=== PATIENT | male | born 1970 | race Caucasian/White ===

== ENCOUNTER 2016-09-07 06:39 | Inpatient (IN) ==
[2016-09-07] MEDS ORDERED: ONDANSETRON 4 MG/2 ML VIAL IV STA ×2 (06:55→12:21)
[2016-09-07] MEDS ORDERED: SODIUM CHLORIDE 0.9% 1,000 ML IV STA ×2 (06:55→09:29)
[2016-09-07] MEDS ORDERED: ONDANSETRON 4 MG/2 ML VIAL ONE ×2 (07:02→12:22)
--- NOTE | 2016-09-07 07:02 | Emergency Department Note ---
Delaney Jones Hilary, am scribing for, and in the presence of, Jeremy Trevino MD 06: 57. Belinda Jones James D, MD, personally performed the services described in this documentation, ascribed by Esthela Baltazar in my presence, and it is both accurate and complete 701 . Arrival - Arrival Chief Complaint: Nausea/Vomiting/Diarrhea Stated Complaint: friend said he was falling out ED Nursing Triage Note: C/C N/VD, dizziness, near syncope started Wednesday Mode of Arrival: Wheelchair Limitations: No Limitations Source: Patient, RN Notes Reviewed Time Seen by Provider: 09/07/16 06:45 - History of Present Illness HPI Narrative: Pt is a 46 y/o male presenting to the ED with c/o nausea and vomiting which onset 3 days ago. He states that he thought this was a stomach virus but feels like its been going on too long and he can't keep anything down. Pt confirms nausea, vomiting, diarrhea, syncope, and decreased appetite but denies melena, blood in stool or vomit. No other complaints or problems stated in the ED. Onset (ago): day(s) Consistency: constant Severity: mild Severity scale (1-10): 2 Allergies/Adverse Reactions: Allergies Allergy/AdvReac Type Severity Reaction Status Date / Time No Known Allergies Allergy Unverified 09/07/16 06:43 Home Medications: Home Medications Medication Instructions Recorded Confirmed Type No Known Home Medications [No 09/07/16 09/07/16 History Known Home Medications] Review of System - Review of System 12 point system: reviewed and no additional remarkable complaints except as stated - Review of System Constitutional: Absent: fever Gastrointestinal: Present: abdominal pain, nausea, vomiting, diarrhea, hematochezia. Absent: hematemesis, melena Medical,Surgical,& Family Hx - Medical History Genitourinary: History of: Kidney Stones - Social History Smoking Status: Never smoker Frequency of Alcohol Use: None Type of Drug Use: None Exam Physical Examination: GENERAL: This is a well-nourished, well-developed in no apparent distress. VITAL SIGNS: Temperature: 97.4 Pulse: 90 Respiratory: 16 Blood Pressure: 164/ 108 O2Sat: 99 HEENT: Head is normocephalic and atraumatic. Pupils are equally round and reactive to light. Extraocular movement are intact. Oropharynx is benign with dry mucous membranes. NECK: Neck is soft and supple without tenderness. There are no masses. There is no lymphadenopathy. LUNGS: Lungs are clear to auscultation bilaterally. Chest rises symmetrically. There is no chest wall tenderness. CV: Heart is regular rate and rhythm without murmurs, rubs, or gallops. ABDOMEN: Abdomen is soft, tender to palpation in the epigastrium and right upper quadrant without rebound or guarding. There are no abnormal masses palpated. There is no organomegaly. Bowel sounds are present and active. SKIN: Skin is warm and dry. No rash. EXTREMITIES: Patient has full range of motion without tenderness. There is no pedal edema. NEUROLOGIC: Awake, alert, and oriented x4. Cranial nerves II through XII are grossly intact. There are no motorsensory deficits. PSYCHIATRIC: Normal affect. Normal mood. Vital Signs: Vital Signs Temperature 97.4 F L 09/07/16 06:41 Pulse Rate 75 09/07/16 09:30 Respiratory Rate 20 09/07/16 09:30 Blood Pressure 140/95 09/07/16 09:30 O2 Sat by Pulse Oximetry 98 09/07/16 09:30 Course - Consultations Consultation #1: Discussed with Dr. Loyola. Patient will be seen in the emergency department. Time: 12:23 Results - Labs CBC & BMP: 09/07/16 06:49 09/07/16 06:49 Lab Results: I have reviewed the patients labs Labs: Laboratory Tests 09/07/16 06:49 WBC 6.2 RBC 5.95 H Hgb 16.1 Hct 46.5 MCV 78.2 L [place] % (Auto) 13.0 H Laboratory Tests 09/07/16 06:49 Lipase 121.0 Laboratory Tests 09/07/16 06:49 Sodium 139 Potassium 4.7 Chloride 102 Carbon Dioxide 25 Anion Gap 16.7 H Glucose 109 H Total Bilirubin 1.20 H AST 49 H Albumin/Globulin Ratio 1.0 L HIDA scan: Decreased ejection fraction at 28%. This is consistent with gallbladder dysfunction. Laboratory Tests 09/07/16 12:30 Urine Color Yellow Urine Appearance Clear Urine Urobilinogen < 2.0 H - Diagnostic Findings Procedure: Abdominal x-ray: report reviewed by me, image reviewed by me ( Nonspecifc nonobstructive bowel gas pattern. Continued right nephrolithiasis. Visualized osseous and surrounding soft tissue structures appear grossly unchanged.), Chest x-ray: report reviewed by me, image reviewed by me (Stable chest x-ray without acute cardiopulmonary process demonstrated.), Ultrasound: report reviewed by me (Gallbladder ultrasound: No cholelithiasis, mild gallbladder wall thickening.) Disposition Clinical Impression: Dehydration, moderate, Nausea and vomiting, Right upper quadrant abdominal pain , Dysfunctional gallbladder Case discussed with: patient Condition: Stable
[2016-09-07 07:04] LABS: Basophils % 0.6 % (0.0-0.8); Eosinophils # 0.1 10*3/uL (0.0-0.87); Eosinophils % 1.1 % (0.00-10.9); Hematocrit 46.5 VOL% (42.0-52.0); Hemoglobin 16.1 GM/DL (14.0-18.0); Immature Granulocytes % 0.3 %; Immature Granulocytes Absolute 0.02 #; Lymphocytes # 1.5 10*3/uL (1.4-4.0); Lymphocytes % 24.3 % (21.2-54.2); Mean Corpuscular HGB Conc 34.6 GM/DL (32-36); Mean Corpuscular Hemoglobin 27 PG (27-34); Mean Corpuscular Volume 78.2 FL (87-102); Mean Platelet Volume 9.8 FL (9.6-12.0); Monocytes # 0.8 10*3/uL (0.11-0.8); Neutrophils # 3.7 10*3/uL (1.4-7.4); Neutrophils % 60.7 % (38.7-73.9); Platelet Count 141 T/CUMM (130-400); Red Blood Count 5.95 MC/CUMM (3.8-5.5); Red Cell Distribution Width 13.7 % (9.3-17.3); White Blood Count 6.2 T/CUMM (4-12)
[2016-09-07 07:33] LABS: Albumin 3.7 G/DL (3.4-5.0); Bilirubin,Total 1.2 MG/DL (0.2-1.0); Calcium 8.8 MG/DL (8.5-10.1); Osmolality,Calculated 276.5 MOS/KG (273-304); Potassium 4.7 MMOL/L (3.5-5.1); Total Protein 7.1 G/DL (6.4-8.3)
--- NOTE | 2016-09-07 07:47 | XRay Report ---
XR abdomen 2V Indication: Right upper quadrant and epigastric pain Comparison: None Technique: Frontal views of the abdomen in the supine and upright position. Findings: Nonspecific nonobstructive bowel gas pattern. Continued right nephrolithiasis. Visualized osseous and surrounding soft tissue structures appear grossly unchanged. IMPRESSION: As above. PROCEDURE INTERPRETED AT [facility] DEPARTMENT OF RADIOLOGY Final Report Signed by: Dr Jaime Holliday
--- NOTE | 2016-09-07 07:49 | XRay Report ---
XR chest 2V Indication: Right upper quadrant and epigastric pain Comparison: Chest x-ray dated December 08, 2012 Technique: Frontal and lateral views of the chest. Findings: The cardiomediastinal silhouette is stable in configuration. No focal consolidation, pleural effusion, or pneumothorax. Visualized osseous and surrounding soft tissue structures appear grossly unchanged. IMPRESSION: Stable chest x-ray without acute cardiopulmonary process demonstrated. PROCEDURE INTERPRETED AT [facility] DEPARTMENT OF RADIOLOGY Final Report Signed by: Dr Jaime Holliday
--- NOTE | 2016-09-07 09:26 | Ultrasound Report ---
History: Epigastric and right upper quadrant abdominal pain Date: 09/07/2016 Study: Gallbladder ultrasound Comparison exam: December 01, 2012 abdominal ultrasound Real-time ultrasound images are captured and archived. There is some nonspecific mild gallbladder wall thickening at 3.2 mm. There is no evidence of cholelithiasis or abnormal pericholecystic fluid. There is no sonographic Ko sign. The liver measures 16.7 cm length and is without focal mass lesion. The common bile duct measures 4.1 mm diameter. The pancreas is largely obscured by bowel gas. The right kidney measures 8.9 cm length and contains a 9 mm simple cyst in the mid to lower right kidney. The IVC is generally patent. Impression: Nonspecific mild gallbladder wall thickening. No evidence of cholelithiasis. Negative sonographic Ko sign. No significant findings otherwise PROCEDURE INTERPRETED AT [facility] DEPARTMENT OF RADIOLOGY Final Report Signed by: Dr. Erum Ramirez
--- NOTE | 2016-09-07 11:53 | Nuclear Medicine Report ---
History: Right upper quadrant abdominal pain Date: 09/07/2016 Study: Nuclear medicine hepatobiliary scan Comparison exam: December 02, 2012 exam Following the IV administration of 5 mCi technetium 99m Choletec, there is homogeneous uptake of the radiotracer by the liver. There is visualization of duodenal activity at 15 minutes and of gallbladder activity at 25 minutes. Following routine dynamic imaging, gallbladder ejection fraction was calculated. Counts were measured over the gallbladder for 60 minutes after the ingestion of 8 ounces of ensure. The patient reported mild nausea and cramping with ingestion of ensure. The gallbladder ejection fraction is mildly decreased at 28%. Impression: Mildly decreased gallbladder ejection fraction of 28%. Otherwise normal study PROCEDURE INTERPRETED AT [facility] DEPARTMENT OF RADIOLOGY Final Report Signed by: Dr. Erum Ramirez
[2016-09-07] MEDS ORDERED: HYDROmorphone 2 MG/1 ML VIAL IV STA (12:21)
[2016-09-07] MEDS ORDERED: HYDROmorphone 2 MG/1 ML VIAL ONE (12:24)
[2016-09-07 12:45] LABS: Apearance,Urine CLEAR (Clear); Bilirubin,Urine Negative (Negative); Blood, Urine Negative (Negative); Glucose,Urine (UA) Negative (Negative); Ketones,Urine Negative (Negative); Mucus,Urine Occasional /LPF (Occasional); Nitrite,Urine Negative (Negative); Protein,Urine Negative; RBC,Urine 2 /HPF (0-4); Squamous Epithelial Cell,Urine Occasional /HPF (0-10); Urine Color Yellow (Yellow); Urine Specific Gravity 1.015 (1.001-1.035); Urine Urobilinogen < 2.0 EU/DL (0.2-1.0); WBC,Urine 2 /HPF (0-6)
[2016-09-07 13:16] LABS: Troponin I Only < 0.015 NG/ML (0.00-0.045)
--- NOTE | 2016-09-07 13:19 | General Surg History&Physical ---
Assessment and Plan (1) Biliary dyskinesia Status: Acute Assessment and plan: Patient apparently has biliary dyskinesia but no evidence of acute cholecystitis present at this time. He can proceed with clear liquid diet, IV fluids, and we will repeat labs in the morning. Provided there is no cardiac involvement per evaluation below, we can proceed with laparoscopic cholecystectomy. We will also check fecal occult blood. Current Visit: Yes (2) Chest pain Status: Acute Assessment and plan: Patient with associated chest pain and noted to be significantly hypertensive. Check cardiac enzymes and EKG, and consult cardiology for evaluation and recommendations to rule out any cardiac involvement with his current symptoms. We appreciate their input. Monitor on telemetry. Current Visit: Yes History of Present Illness Chief complaint: Abd pain History of present illness: Mr. Treadwell is a 46 year old male with past with no concerning past medical history reports right upper quadrant and appendectomy gastric pain for 3 days. Patient reports the pain is moderate to severe in nature associated with nausea and vomiting of clear contents this morning; he also reports associated diarrhea. The pain described as not necessarily related to foods and he does not note previous similar symptoms. He is in no fever, chills, rigors or arthralgias. He does report epigastric to substernal chest pain associated numbness of the left upper extremity; no correlation with shortness of breath, palpitations, diaphoresis or weakness. Patient is on no medications and no history of hypertension. Home Medications Medication Instructions Recorded Confirmed Type No Known Home Medications [No 09/07/16 09/07/16 History Known Home Medications] Allergies Allergy/AdvReac Type Severity Reaction Status Date / Time No Known Allergies Allergy Unverified 09/07/16 06:43 Medical,Surgical,& Family Hx - Medical History Cardio: No history of: CAD, Hypertension, [place] Genitourinary: History of: Kidney Stones - Surgical History Thoracic Surgeries: Surgical HX of;: Kidney (Renal Surgery) (stone extraction) - Family History Additional Family History: No known contributing family history - Social History Smoking Status: Never smoker Frequency of Alcohol Use: Occasionally Type of Drug Use: None Functional capacity: independent ambulation (Employed full-time) Exam - Constitutional Vitals: Period Temp Pulse Resp BP Sys/[place] Pulse Ox Last 24 Hr 97.4 F-97.4 F 75-92 16-20 138-164/92-108 93-100 General appearance: no acute distress - Head Head exam: Present: normal inspection, normocephalic - Eye Eye exam: Absent: conjunctival injection, periorbital swelling, scleral icterus - Neck Neck exam: Present: trachea midline - Respiratory Respiratory exam: Present: clear to auscultation bilaterally - Cardiovascular Cardiovascular exam: Present: RRR - GI/Abdominal GI/Abdominal exam: Present: normal bowel sounds, tenderness (RUQ tenderness), soft. Absent: distended, rebound - Extremities Exam Extremities exam: Absent: calf tenderness, edema - Back Exam Back exam: Absent: CVA tenderness (L), CVA tenderness (R) - Neurological Exam Neurological exam: Present: alert, oriented X3 - Skin Skin exam: Present: normal color, warm - Constitutional Constitutional: Present: as per HPI - Cardiovascular Cardiovascular: Present: as per HPI - Respiratory Respiratory: Absent: cough, hemoptysis, dyspnea on exertion, wheezing - Gastrointestinal Gastrointestinal: Present: as per HPI - Genitourinary Genitourinary: Absent: dysuria, flank pain - Musculoskeletal Musculoskeletal: Present: as per HPI Hematologic/Lymphatic: Absent: easy bleeding, easy bruising Results - Labs CBC & BMP: 09/07/16 06:49 09/07/16 06:49 Labs: HIDA with gallbladder EF 28% Lab review: Total bilirubin 1.2, AST 49, other LFTs are unremarkable Urinalysis unremarkable - Diagnostic Findings Procedure: Chest x-ray: image reviewed by me, report reviewed by me, KUB x-ray: image reviewed by me, report reviewed by me, Ultrasound: image reviewed by me, report reviewed by me (GB wall thickening; no stones or ductal dilatation)
[2016-09-07] MEDS ORDERED: ACETAMINOPHEN 325 MG TABLET PO PRN (15:11)
--- NOTE | 2016-09-07 16:02 | Cardiology Consult Note ---
Assessment and Plan (1) Chest pain Status: Acute Assessment and plan: EKG is pending. We will review troponins and review a 2D echocardiogram. There are no features and make me think that this is anginal chest pain. I think is a reasonable risk for the planned surgery after we review a 12-lead EKG and a set of troponins. Current Visit: Yes History of Present Illness - Data of Consult Patient: new to practice - Consult Narrative Reason for consult: Patient with history of gallbladder disease with chest discomfort atypical History of present illness: Mr. Treadwell is a 46 year old male who presented to the emergency room with nausea vomiting abdominal pain is found to have what is likely a nonfunctioning gallbladder. He is being evaluated for surgical resection of his gallbladder. He complains of chest discomfort which is atypical. It does not sound anginal. It occurs at rest mostly at bedtime and lasts at most maybe for 30 seconds or so. The pain is not anginal in nature. He has had no syncope presyncope or heart failure symptoms. He has had no palpitations. He has not had prior heart problems. He takes no regular medications. He has no identifiable risk factors for premature coronary disease. CC: Theo Loyola MD - Home Medications and Allergies Home Medications: Home Medications Medication Instructions Recorded Confirmed Type No Known Home Medications [No 09/07/16 09/07/16 History Known Home Medications] Allergies/Adverse Reactions: Allergies Allergy/AdvReac Type Severity Reaction Status Date / Time No Known Allergies Allergy Unverified 09/07/16 06:43 Medical,Surgical,& Family Hx - Medical History Cardio: No history of: CAD, Hypertension, [place] Psychological: No history of: Anxiety Disorders, ADHD, Behavior Problems, Bipolar Disorder, Depression, Previous Suicide Attempt, Psychiatric/Substance Abuse Tx, Schizophrenia, Violent Behavior, Psychiatric Problems Genitourinary: History of: Kidney Stones (had surgery for kidney stones) - Surgical History Thoracic Surgeries: Surgical HX of;: Kidney (Renal Surgery) (stone extraction) - Social History Smoking Status: Never smoker Frequency of Alcohol Use: Occasionally Type of Drug Use: None Physical Examination Vital Signs Temp Pulse Resp BP Pulse Ox 97.4 F L 90 16 164/108 99 09/07/16 06:41 09/07/16 06:41 09/07/16 06:41 09/07/16 06:41 09/07/16 06:41 Other: Physical examination: General: The patient is awake and alert and oriented -3. Mood and affect are normal. HEENT: Normocephalic, sclera are clear there are no lid xanthelasmas noted. Oral mucosa is free of cyanosis or pallor. Neck: The neck is supple without JVD. Carotid upstrokes are normal volume and amplitude. There is no audible bruit. There is no palpable thyroid. Trachea is midline. Chest: Lungs: The patient is comfortable at rest without intercostal retractions or abdominal breathing. There are no adventitial sounds rales rubs rhonchi or wheezes noted. Cardiovascular: The PMI is nondisplaced. No palpable thrill S3 or S4. There is a regular rate and rhythm with no murmur rub or gallop noted. Dorsalis pedis posterior tibial and femoral pulses are 2+ and equal bilaterally. Abdomen: Abdomen is soft and nontender with tympanitic pulses are 1+ and equal bowel sounds. There is no palpable mass or organomegaly noted. There is no midline bruit. Extremities exam: There is no cyanosis clubbing or edema. Skin: Skin is warm and dry without ecchymosis or urticaria or skin rash. There are no palpable nodules. Musculoskeletal: There is no kyphosis or scoliosis noted. Result/EKG - Labs CBC & BMP: 09/07/16 06:49 09/07/16 06:49 Labs: Laboratory Results - last 24 hr 09/07/16 09/07/16 09/07/16 06:49 06:49 06:49 WBC 6.2 RBC 5.95 H Hgb 16.1 Hct 46.5 MCV 78.2 L MCH 27 MCHC 34.6 RDW 13.7 Plt Count 141 MPV 9.8 Neut % (Auto) 60.7 Lymph % (Auto) 24.3 [place] % (Auto) 13.0 H Eos % (Auto) 1.1 Baso % (Auto) 0.6 Neut # (Auto) 3.7 Lymph # (Auto) 1.5 [place] # (Auto) 0.8 Eos # (Auto) 0.1 Baso # (Auto) 0.0 Immature Gran % 0.3 Nucleated RBC % 0.0 Immature Gran # 0.02 Nucleated RBCs # 0.00 Sodium 139 Potassium 4.7 Chloride 102 Carbon Dioxide 25 Anion Gap 16.7 H BUN 11 Creatinine 1.30 GFR Calculation 71 BUN/Creatinine Ratio 8.00 Glucose 109 H Calculated Osmolality 276.5 Calcium 8.8 Total Bilirubin 1.20 H AST 49 H ALT 39 Alkaline Phosphatase 110 Total Creatine Kinase CK-MB (CK-2) Troponin I Total Protein 7.1 Albumin 3.7 Globulin 3.4 Albumin/Globulin Ratio 1.0 L Lipase 121.0 Urine Color Urine Appearance Urine pH Ur Specific [place] Urine Protein Urine Glucose (UA) Urine Ketones Urine Blood Urine Nitrate Urine Bilirubin Urine Urobilinogen Urine Leukocytes Urine RBC Urine WBC Ur Squamous Epith Cells Urine Mucus Ur Culture Indicated? 09/07/16 09/07/16 06:49 12:30 WBC RBC Hgb Hct MCV MCH MCHC RDW Plt Count MPV Neut % (Auto) Lymph % (Auto) [place] % (Auto) Eos % (Auto) Baso % (Auto) Neut # (Auto) Lymph # (Auto) [place] # (Auto) Eos # (Auto) Baso # (Auto) Immature Gran % Nucleated RBC % Immature Gran # Nucleated RBCs # Sodium Potassium Chloride Carbon Dioxide Anion Gap BUN Creatinine GFR Calculation BUN/Creatinine Ratio Glucose Calculated Osmolality Calcium Total Bilirubin AST ALT Alkaline Phosphatase Total Creatine Kinase 185 CK-MB (CK-2) < 1.0 Troponin I < 0.015 Total Protein Albumin Globulin Albumin/Globulin Ratio Lipase Urine Color Yellow Urine Appearance Clear Urine pH 6.0 Ur Specific [place] 1.015 Urine Protein Negative Urine Glucose (UA) Negative Urine Ketones Negative Urine Blood Negative Urine Nitrate Negative Urine Bilirubin Negative Urine Urobilinogen < 2.0 H Urine Leukocytes Negative Urine RBC 2 Urine WBC 2 Ur Squamous Epith Cells Occasional Urine Mucus Occasional Ur Culture Indicated? Not indicated Quality Measures - VTE Contraindication to Pharmacological VTE Prophylaxis: High Risk of Bleeding
[2016-09-07] MEDS: LACTATED RINGERS 1,000 ML IV SCH (16:14)
[2016-09-07] MEDS: MORPHINE 2 MG/1 ML SYRINGE IV PRN (21:38)
[2016-09-08] MEDS: LACTATED RINGERS 1,000 ML IV SCH ×3 (00:42→17:21)
--- NOTE | 2016-09-08 06:11 | EKG Report ---
Stationary ECG Study [facility] Test Date: 09/08/2016 12:14:12 AM Pat Name: BIRD ANDREWS Department: Room: 541 Gender: M Printer Machine: Dasha OSORIO CRT : 1970 Requested by: Heike Fernando Order Number: [id number] Sonny MD: HEIKE FERNANDO Intervals [place] Rate: 69 P: 44 OR: 146 QRS: -5 QRSD: 87 T: -11 QT: 399 QTc: 418 Interpretive Statements SINUS RHYTHM Electronically Signed On 09-09-16 17:03:12 CDT by HEIKE FERNANDO [email or web address]
[2016-09-08] MEDS: PANTOPRAZOLE 40 MG TABLET PO SCH (09:59)
[2016-09-08 10:40] LABS: Troponin I Only < 0.015 NG/ML (0.00-0.045)
--- NOTE | 2016-09-08 11:08 | Event Note ---
Case reviewed with nurse practitioner Sasha Leon NP this morning. With repeat cardiac enzymes negative, there are no contraindications to proceeding with surgery today. We appreciate their assistance.
[2016-09-08] MEDS ORDERED: ONDANSETRON 4 MG/2 ML VIAL ONE (12:05)
[2016-09-08] MEDS ORDERED: ROCURONIUM 100 MG/10 ML VIAL IV ONE (12:05)
[2016-09-08] MEDS ORDERED: PROPOFOL 200 MG/20 ML VIAL IV ONE (12:05)
[2016-09-08] MEDS ORDERED: KETOROLAC 30 MG/1 ML VIAL ONE (12:05)
[2016-09-08] MEDS ORDERED: LIDOCAINE 100 MG/5 ML SYRINGE ONE (12:05)
[2016-09-08] MEDS ORDERED: MIDAZOLAM 2 MG/2 ML VIAL ONE (12:44)
[2016-09-08] MEDS ORDERED: fentaNYL 100 MCG/2 ML VIAL ONE (12:44)
[2016-09-08] MEDS ORDERED: ACETAMINOPHEN 1,000 MG/100 ML VIAL IV ONE (12:44)
--- NOTE | 2016-09-08 13:10 | Operative Note ---
Date of procedure: 09/08/16 Pre-op diagnosis: Biliary dyskinesia, chronic cholecystitis Post-op diagnosis: same Procedure: Procedure performed: Laparoscopic cholecystectomy with intraoperative cholangiogram Procedure in detail: After informed consent was obtained, patient was taken operating suite and placed upon the operating table. After general anesthesia induced the abdomen was prepped and draped in usual sterile fashion. After procedural pause local anesthetic infiltrated in the skin and subcutaneous tissue above the umbilicus. Incision made and dissection carried down through soft tissue. Fascia grasped with Hira's and elevated. Fascial incision made. Abdominal cavity was entered bluntly. Finger sweep revealed no adhesions. Kuo trocar placed under visualization. Pneumoperitoneum achieved. Camera inserted bowel mesentery inspected found to be free of any violation. Next patient was placed in reverse Trendelenburg position rotated to the left. 2 5 mm trochars placed in the right upper quadrant. 11 mm subxiphoid trocar was placed all under good visualization gallbladder was grasped and retracted superiorly. Headache changes consistent with chronic cholecystitis. Infundibulum the gallbladder retracted toward the right hip. Dissection carried out from lateral to medial approach and the triangle of Paolo. Cystic duct and cystic artery were identified and isolated. Using a critical view technique these only 2 structures entering the gallbladder. Clip was placed at the junction of the cystic duct neck of the gallbladder and partial transection made on the cystic duct. Cholangiocatheter inserted and secured in place. Intraoperative glandular and performed. Cystic duct common bile duct intra-and extrahepatic ducts all filled with no filling defects identified. Contrast was seen entering small bowel. Cholangiocatheter was removed and 2 clips placed just distal to the partial transection of the transection completed. Cystic artery was triple clipped and transected how long the gallbladder wall. Gallbladder removed from the gallbladder fossa using hook cautery and placed in Endo Catch sac. Pneumoperitoneum reachieved. The right upper quadrant thoroughly irrigated and suctioned. Clips inspected found to be intact no leakage of bilious or sinus fluid. There is excellent hemostasis. Trochars were removed his abdomen desufflated. Fascia at the Kuo trocar site closed using 0 Vicryl [id number] interrupted suture. Wounds irrigated and suctioned. Incision closed with maxwell. Sterile dressings applied. Patient was explained taken recovery in stable condition. All lap and needle counts correct at the end of the case. Anesthesia: GETA Surgeon / Physician: Theo Loyola Estimated blood loss: other (Less than 10 cc) Specimens: other (Gallbladder) Condition: stable Disposition: PACU Results - Labs CBC & BMP: 09/07/16 06:49 09/07/16 06:49 Discharge Plan - Discharge Medications No Action No Known Home Medications [No Known Home Medications] - Follow Up or Referral - Forms/Instructions
[2016-09-08] MEDS ORDERED: BUPIVACAINE MPF 0.25% /EPI 30 ML VIAL ONE (13:14)
--- NOTE | 2016-09-08 13:14 | Anesthesia Post-Op ---
Anesthesia Post OP - Post Ansesthetic Evaluation Patient seen in post op: Yes Resp: within normal limits CV: within normal limits Mental: within normal limits Temp: within normal limits [id number]: within normal limits Nausea and Vomiting: within normal limits Pain: within normal limits
[2016-09-08] MEDS ORDERED: ONDANSETRON 4 MG/2 ML VIAL IV PRN (13:28)
[2016-09-08] MEDS: HYDROmorphone 2 MG/1 ML VIAL IV PRN ×4 (13:30→13:56)
--- NOTE | 2016-09-08 14:02 | Fluoroscopy Report ---
[place] cholangiogram in surgery Indication: Pain Comparison: None Technique: 6 intraoperative fluoroscopic views of the biliary tree submitted. Fluoroscopy time 21.6 seconds. Findings: Images submitted during intraoperative cholangiogram. Submitted images demonstrate no evidence of significant biliary ductal dilatation. There is free flow of contrast into the duodenum. IMPRESSION: As above. PROCEDURE INTERPRETED AT [facility] DEPARTMENT OF RADIOLOGY Final Report Signed by: Dr Jaime Holliday
--- NOTE | 2016-09-08 15:54 | Cardiology Progress Note ---
Edward Jones Vanessa, RN, am scribing for, and in the presence of, Rodney Fernando MD 15:54. Assessment and Plan - Time spent with patient Time spent with patient: Greater than 30 minutes (1) Preoperative cardiovascular examination Status: Acute Assessment and plan: He is without identifiable risk factors for premature CAD. Clinically, he is without finding for acute coronary syndrome or angina at this time. Current Visit: Yes (2) Chest pain Status: Acute Assessment and plan: Twelve-lead EKG without acute ischemic finding. Atypical chest pain has resolved. Stat cardiac biomarkers have been obtained and we will review these. We do not anticipate change. From a cardiac standpoint, he is stable and okay to proceed with surgical procedure. Current Visit: Yes (3) Biliary dyskinesia Status: Acute Assessment and plan: Defer primary management to general surgery. Current Visit: Yes Cardiology - PN: Subj Interval history: PRIMARY CHIEF MARKETING OFFICER: DR. FERNANDO (NEW) SUMMARY: Mr. Treadwell is a 46-year-old white male with no identical risk factors for CAD. He is currently admitted with nausea, vomiting, abdominal pain, and has been found to have biliary dyskinesia. He has been evaluated by general surgery , and he is planned for laparoscopic cholecystectomy. He has had some recent complaints of chest discomfort, which by examination and history is atypical and does not sound anginal. No recent or current presyncope, syncope, orthopnea , PND, palpitations, or other anginal complaint. Cardiology has been asked to see for preoperative cardiovascular exam. September: Patient seen and examined in follow-up this morning. He is tentatively planned for cholecystectomy today. He is awake and alert, he has no acute distress. No chest pain or epigastric pain. Reports abdominal pain previously experienced has now transitioned to lower back/flank area. Skin is warm and dry , and there is no peripheral edema. EKG this morning is without acute change and reveals sinus rhythm with pulse rate in the 70s. Cardiac monitoring has revealed sinus rhythm with no overt ectopy or dysrhythmia appreciated. BP is 145 /80. Cardiac biomarkers have been obtained this morning and we will review. From a cardiac standpoint, he is at low risk for intraoperative cardiovascular event, it is okay from our standpoint to proceed with planned procedure. We will follow-up. Exam (Progress Note) - Constitutional Vitals: Period Temp Pulse Resp BP Sys/Guardado Pulse Ox Last 24 Hr 97.7 F-98.5 F 68-82 16-20 133-179/83-105 95-100 Exam: General: The patient is awake and alert and oriented 3. Mood and affect are normal. HEENT: Normocephalic, sclera are clear there are no lid xanthelasmas noted. Oral mucosa is free of cyanosis or pallor. Neck: The neck is supple without JVD. Carotid upstrokes are normal volume and amplitude. There is no audible bruit. There is no palpable thyroid. Trachea is midline. Chest: Lungs: The patient is comfortable at rest without intercostal retractions or abdominal breathing. There are no adventitial sounds, rales, rubs, rhonchi, or wheezes noted. Cardiovascular: The PMI is nondisplaced. No palpable thrill S3 or S4. There is a regular rate and rhythm with no murmur rub or gallop noted. Dorsalis pedis posterior tibial and femoral pulses are 2+ and equal bilaterally. Abdomen: Abdomen is soft and nontender with tympanitic pulses are 1+ and equal bowel sounds. There is no palpable mass or organomegaly noted. There is no midline bruit. Extremities exam: There is no cyanosis clubbing or edema. Skin: Skin is warm and dry without ecchymosis or urticaria or skin rash. There are no palpable nodules. Musculoskeletal: There is no kyphosis or scoliosis noted. Result/EKG - Labs CBC & BMP: 09/07/16 06:49 09/07/16 06:49 Lab Results: I have reviewed the past 24 hour labs Labs: Laboratory Results - last 24 hr 09/07/16 09/07/16 09/07/16 06:45 06:49 12:30 POC Glucose 81 Total Creatine Kinase 185 CK-MB (CK-2) < 1.0 Troponin I < 0.015 Urine Color Yellow Urine Appearance Clear Urine pH 6.0 Ur Specific [place] 1.015 Urine Protein Negative Urine Glucose (UA) Negative Urine Ketones Negative Urine Blood Negative Urine Nitrate Negative Urine Bilirubin Negative Urine Urobilinogen < 2.0 H Urine Leukocytes Negative Urine RBC 2 Urine WBC 2 Ur Squamous Epith Cells Occasional Urine Mucus Occasional Ur Culture Indicated? Not indicated - EKG EKG results: interpreted by me, no acute changes EKG shows: sinus rhythm (Pulse rate 70) Quality Measures - VTE Contraindication to Pharmacological VTE Prophylaxis: High Risk of Bleeding Abdullahi Jones Wesley, MD, personally performed the services described in this documentation, ascribed by Sasha Leon RN in my presence, and it is both accurate and complete 554 .
[2016-09-08] MEDS: MORPHINE 2 MG/1 ML SYRINGE IV PRN (18:43)
[2016-09-09] MEDS: MORPHINE 2 MG/1 ML SYRINGE IV PRN ×2 (00:45→05:35)
[2016-09-09] MEDS: LACTATED RINGERS 1,000 ML IV SCH ×2 (00:46→08:51)
[2016-09-09] MEDS ORDERED: MORPHINE 2 MG/1 ML SYRINGE IV PRN (08:44)
[2016-09-09] MEDS: PANTOPRAZOLE 40 MG TABLET PO SCH (08:51)
--- NOTE | 2016-09-09 09:18 | EKG Report ---
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
[2016-09-09 10:11] LABS: Albumin 3.1 G/DL (3.4-5.0); Calcium 8.2 MG/DL (8.5-10.1); Osmolality,Calculated 277.4 MOS/KG (273-304); Potassium 3.9 MMOL/L (3.5-5.1); Total Protein 5.7 G/DL (6.4-8.3)
--- NOTE | 2016-09-09 11:24 | Pathology Report from [facility] ---
[facility] ACCESSION # : [id number] PATIENT NAME : Prasanth Treadwell ORDERING DR : Theo Loyola MD CLINICAL HX: Cholecystitis POST-OP DX: Same SPECIMEN INFO: Gallbladder GROSS DESCRIPTION: The specimen is received in formalin labeled with the patients name and consists of an intact gallbladder measuring 7.5 x 4.0 cm. The serosa is smooth and fatty. The wall averages 0.3 cm in thickness. The mucosal surface is velvety and brown tinged. The lumen contains brown bile with no stones. Hide Sorter sections submitted in one cassette. DIAGNOSIS FOR PRASATNH TREADWELL: GALLBLADDER, CHOLECYSTECTOMY: Chronic cholecystitis. COLLECTED DATE: 09/08/2016 [facility] REPORT DATE: 09/09/2016 ELECTRONICALLY SIGNED BY: Katja Baxter M.D. 09/09/2016 - 9:24:15 MTDFlavio
--- NOTE | 2016-09-09 11:49 | Discharge Summary ---
Hospital Course - Hospital Course Hospital Course: Patient is a 46-year-old male who presented with evidence of biliary dyskinesia and chronic cholecystitis who underwent laparoscopic cholecystectomy. There was also concern for possible cardiac etiology for her symptoms as patient presented with significant hypertension. Cardiology consult was obtained and input is appreciated. Ultimately, the patient tolerated the procedure as above without complication. He is tolerating oral intake and activity without complication. Voiding without difficulty. No cardiac abnormalities unveiled. Patient was discharged home in good condition with appropriate analgesics and follow-up plan. Diagnosis - Discharge Diagnosis (1) Biliary dyskinesia Status: Acute (2) Chest pain Status: Acute (3) Chronic cholecystitis Status: Acute Discharge Plan - Discharge Data Disposition: Disch To Home/Self Care Condition at Discharge: Stable Discharge Diet: advance to your usual diet Activity: no lifting (> 10 lb. Avoid rigorous activity. No pushing, pulling or climbing. ) Hygiene: may shower (Starting 2 days after surgery, the patient may remove dressings and shower. Do not soak or submerge wounds. Pat incisions dry with clean towel. ) Driving: not until seen by doctor Contact your physician if you experience:: fever over 101, Difficulty voiding, Redness or swelling, Nausea/Vomiting, Shortness of breath, Bleeding, pain uncontrolled by pain medications Wound / Dressing Care Instructions: Keep surgical incisions clean, dry and covered. May change dressing on postoperative day #2 - September 10. - Discharge Medications New HYDROcodone/ACETAMIN 7.5-325 [[place] 7.5-325] 1 tablet PO Q4H PRN #30 tablet PRN Reason: Pain Moderate To Severe (4-10) - Follow Up or Referral Follow Up: Theo Loyola MD [Physician] - (Follow up with Dr. Loyola or partner in 2 wks) - Forms/Instructions Instructions: Laparoscopic Cholecystectomy (DC) Exam - Constitutional Vitals: Period Temp Pulse Resp BP Sys/Guardado Pulse Ox Last 24 Hr 97.4 F-98.9 F 69-89 10-18 116-162/73-98 90-100 General appearance: no acute distress - Head Head exam: Present: normal inspection, normocephalic - Eye Eye exam: Absent: conjunctival injection, scleral icterus - Respiratory Respiratory exam: Present: clear to auscultation bilaterally - Cardiovascular Cardiovascular exam: Present: regular rate and rhythm - GI/Abdominal GI/Abdominal exam: Present: normal bowel sounds, tenderness (Appropriate postop tenderness.), soft, other (Surgical dressings clean, dry and intact.). Absent: distended - Neurological Exam Neurological exam: Present: alert, oriented X3 - Psychiatric Psychiatric exam: Present: normal affect, normal mood - Skin Skin exam: Present: normal color, warm Discharge Results Procedures and tests throughout hospitalization: 1. The patella cholecystectomy 2. Intraoperative cholangiogram 3. HIDA scan with EF of gallbladder 20% 4. Gallbladder pathology demonstrated chronic cholecystitis Labs on day of discharge: Labs from last 24 hours 09/09/16 09:04 Sodium 140 Potassium 3.9 Chloride 102 Carbon Dioxide 30 Anion Gap 11.9 BUN 10 Creatinine 1.00 GFR Calculation 98 BUN/Creatinine Ratio 10.00 Glucose 91 Calculated Osmolality 277.4 Calcium 8.2 L Total Bilirubin 1.00 AST 38 H ALT 53 Alkaline Phosphatase 139 H Total Protein 5.7 L Albumin 3.1 L Globulin 2.6 Albumin/Globulin Ratio 1.1 - Imaging and Cardiology Procedure: Abdominal x-ray: image reviewed by me, report reviewed by me, Chest x -ray: image reviewed by me, report reviewed by me, Ultrasound: image reviewed by me, report reviewed by me (Gallbladder) DS: Provider Date of admission: 09/07/16 13:12 Primary care physician: . No PCP Attending physician on admission: Theo Loyola MD Consults: 09/07/16 15:11 Consult to Physician [CONS] Routine Comment: chest pain Consulting Provider: Hector Garza Person Notified: Kaye Date Notified: 09/07/16 Time Notified: 15:13 Discharging clinician: Lissette Yates PA-C
[2016-09-09] MEDS: ONDANSETRON 4 MG/2 ML VIAL IV PRN (14:14)
--- NOTE | 2016-09-09 15:06 | Event Note ---
The pt is POD #1 s/p lap meek. Pt with pain with adequate control. Slow progress with mobility. Low appetite. Pt with significant nausea after progressing diet at lunch today. No fever or chills. VSS NAD RRR CTAB Surgical dressings c/d/i. Abd soft with slight distension; BS present. Appropriate p/o tenderness. No pedal edema. Calves soft/NT AP Stable POD #1. Pt with difficulty advancing diet. Will slow progress and re- evaluate in am. Restart IVF. Analgesics and anti-emetics as warranted. Encouraged IS and mobilization. Continue scd.
[2016-09-09] MEDS: DEXTROSE 5% NACL 0.45% 1,000 ML IV SCH (15:27)
[2016-09-09] MEDS ORDERED: HYDROmorphone 2 MG/1 ML VIAL IV PRN (16:36)
[2016-09-09 17:21] LABS: Basophils % 0.3 % (0.0-0.8); Eosinophils % 0.2 % (0.00-10.9); Hematocrit 40.6 VOL% (42.0-52.0); Hemoglobin 13.8 GM/DL (14.0-18.0); Immature Granulocytes % 0.3 %; Immature Granulocytes Absolute 0.02 #; Lymphocytes # 0.5 10*3/uL (1.4-4.0); Lymphocytes % 7.5 % (21.2-54.2); Mean Corpuscular Hemoglobin 27 PG (27-34); Mean Corpuscular Volume 80.2 FL (87-102); Monocytes # 0.4 10*3/uL (0.11-0.8); Monocytes % 7.1 % (1.7-12.7); Neutrophils # 5.2 10*3/uL (1.4-7.4); Neutrophils % 84.6 % (38.7-73.9); Platelet Count 136 T/CUMM (130-400); Red Blood Count 5.06 MC/CUMM (3.8-5.5); Red Cell Distribution Width 13.3 % (9.3-17.3); White Blood Count 6.2 T/CUMM (4-12)
[2016-09-09] MEDS: metroNIDAZOLE INJ 500 MG in PREMIX 1 EACH IV SCH (17:53)
[2016-09-09 17:55] LABS: Apearance,Urine CLEAR (Clear); Bilirubin,Urine Negative (Negative); Blood, Urine Negative (Negative); Glucose,Urine (UA) Negative (Negative); Ketones,Urine 5 mg/dL (Negative); Mucus,Urine Occasional /LPF (Occasional); Nitrite,Urine Negative (Negative); Protein,Urine Negative; RBC,Urine <1 /HPF (0-4); Urine Color Yellow (Yellow); Urine Specific Gravity 1.012 (1.001-1.035); Urine Urobilinogen < 2.0 EU/DL (0.2-1.0); WBC,Urine 2 /HPF (0-6)
--- NOTE | 2016-09-09 18:15 | CT Report ---
CT of the abdomen and pelvis with intravenous contrast. Indication: Abdominal pain and distention. One day postoperative from gallbladder surgery. Rule out abscess. Comparison: Previous noncontrasted study from June 07, 2014. 100 cc Omni 350. There is some bowel contrast within the colon. The heart is mildly enlarged. There are areas of atelectasis present within each lung base. The liver is normal in size and density. Surgical clips are noted in the gallbladder fossa. There is minimal stranding and minimal fluid in the gallbladder fossa, not organized or enhancing. The adrenal glands are normal in size and configuration. There is no splenic abnormality. There is cortical loss involving the lower pole of the right kidney. There are collecting system and parenchymal calcifications present. Duplication of the right renal collecting system. No hydronephrosis or delay in function. The left kidney presents a normal appearance. No pancreatic abnormality is identified. The gastric contour is normal. The proximal small intestine is unremarkable. Loops of distal small intestine, within the pelvis, demonstrate some edematous wall thickening and dilatation. The terminal ileum presents a normal appearance. There are small subcentimeter lymph nodes in the right lower quadrant mesentery. The appendix presents a normal appearance. There is minimal free fluid in the pelvis, with minimal fluid extending into a right inguinal hernia which contains only fat. The urinary bladder presents a normal appearance. The colon is mildly distended with gas. No wall thickening is seen. No evidence of bowel obstruction. Scattered plaque is present within a normal caliber abdominal aorta. Within the subcutaneous tissues around the umbilicus, there is air and stranding, without an organized fluid collection. Degenerative changes are present within the spinal column. Impression: 1. Bilateral basilar atelectasis. 2. Minimal fluid and stranding in the gallbladder fossa, without an organized abscess collection. 3. Distal loops of small intestine within the anterior pelvis demonstrate mild dilatation and edematous wall thickening which may be due to enteritis/ileitis, or reactive to the surgery. 4. Numerous subcentimeter lymph nodes in the right lower quadrant mesentery. 5. Small amount of free fluid in the pelvis. The CT exam was performed using one or more of the following dose reduction techniques: Automated exposure control, adjustment of the mA and/or kV according to patient size, or use of iterative reconstruction technique. PROCEDURE INTERPRETED AT [facility] DEPARTMENT OF RADIOLOGY Final Report Signed by: Dr. Sunshine Calvert
[2016-09-09] MEDS ORDERED: IBUPROFEN 400 MG TABLET PO PRN (19:47)
[2016-09-09] MEDS: PIPERACILLIN/TAZOBACTAM 3,375 MG in SODIUM CHLORIDE 0.9% 100 ML IV SCH (19:56)
[2016-09-10] MEDS: metroNIDAZOLE INJ 500 MG in PREMIX 1 EACH IV SCH ×3 (01:18→16:25)
[2016-09-10] MEDS: DEXTROSE 5% NACL 0.45% 1,000 ML IV SCH ×2 (01:20→22:46)
[2016-09-10] MEDS: PIPERACILLIN/TAZOBACTAM 3,375 MG in SODIUM CHLORIDE 0.9% 100 ML IV SCH ×3 (02:30→17:31)
[2016-09-10 05:33] LABS: Basophils % 0.4 % (0.0-0.8); Eosinophils % 0.2 % (0.00-10.9); Hematocrit 38.3 VOL% (42.0-52.0); Hemoglobin 12.9 GM/DL (14.0-18.0); Immature Granulocytes % 0.9 %; Immature Granulocytes Absolute 0.04 #; Lymphocytes # 0.7 10*3/uL (1.4-4.0); Lymphocytes % 14.2 % (21.2-54.2); Mean Corpuscular HGB Conc 33.7 GM/DL (32-36); Mean Corpuscular Hemoglobin 27 PG (27-34); Mean Corpuscular Volume 79.8 FL (87-102); Mean Platelet Volume 9.2 FL (9.6-12.0); Monocytes # 0.6 10*3/uL (0.11-0.8); Monocytes % 12.5 % (1.7-12.7); Neutrophils # 3.3 10*3/uL (1.4-7.4); Neutrophils % 71.8 % (38.7-73.9); Platelet Count 119 T/CUMM (130-400); Red Cell Distribution Width 13.3 % (9.3-17.3); White Blood Count 4.6 T/CUMM (4-12)
[2016-09-10 05:57] LABS: Hypochromasia 1+; Platelet Estimate Decreased
[2016-09-10 06:05] LABS: Calcium 7.9 MG/DL (8.5-10.1); Osmolality,Calculated 278.4 MOS/KG (273-304); Potassium 3.8 MMOL/L (3.5-5.1)
--- NOTE | 2016-09-10 06:24 | Event Note ---
Status post lap meek. Patient's right upper quadrant pain has resolved. He was not feeling well after regular diet around lunch yesterday and developed chills. He developed a rash at this time which quickly improved. He has since had fever and diarrhea. States he did not sleep well last night because he was high at 1 minute and cold the next. CT scan was done last night which showed some atelectasis as well as the appearance of enteritis of a portion of small bowel. On exam his abdomen is soft appropriately tender with some mild tenderness in the right abdomen at the level of the umbilicus. He has a very mild rash across the sternum. Impression: Probable enteritis. His right upper quadrant pain resolved after cholecystectomy. He is now having fever and diarrhea. He was restarted on Zosyn and Flagyl and will continue that for now. We will send the next stool for C. difficile and consult GI. His lab work is unremarkable. He has been made to ambulate with the nursing staff and appears to only use his incentive spirometry when prompted by the nursing staff. I have encouraged him to do both of these on his own as tolerated.
--- NOTE | 2016-09-10 08:36 | EKG Report ---
Stationary ECG Study [facility] Test Date: 09/10/2016 8:35:58 AM Pat Name: BIRD ANDREWS Department: Room: 541 Gender: M Box Maker: JESUS : 1970 Requested by: Heike Fernnado Order Number: [id number] Sonny MD: HEIKE FERNANDO Intervals [place] Rate: 75 P: 43 PA: 134 QRS: 3 QRSD: 101 T: -6 QT: 386 QTc: 415 Interpretive Statements SINUS RHYTHM Electronically Signed On 09-10-16 16:13:20 CDT by HEIKE FERNANDO [id number]
[2016-09-10] MEDS: PANTOPRAZOLE 40 MG TABLET PO SCH (08:49)
--- NOTE | 2016-09-10 12:28 | Gastrointestinal Consult Note ---
<Cecelia Hardy - Last Filed: 09/10/16 12:18> Assessment and Plan (1) Abdominal pain Status: Acute Assessment and plan: 09/10-1 week history of generalized abdominal pain, nausea, vomiting as well as associated fever and chills. Reports of varying episodes of diarrhea since onset 1 week ago. Postop laparoscopic cholecystectomy. Onset of [address] findings noted below. Currently on IV Flagyl and Zosyn. Plan an addendum to follow Dr. Son easton Current Visit: Yes History of Present Illness Chief complaint: Diarrhea, fever History of present illness: Mr. Treadwell is a 46 year old male who was admitted to the hospital on 09/07 after sudden onset of right upper quadrant abdominal pain 3 days prior to admission. Patient states that the pain started suddenly and was severe in nature associated with nausea and vomiting as well as diarrhea. Patient was seen by Dr. Garvin and on 09/08 he had a laparoscopic cholecystectomy with intraoperative cholangiogram that showed no filling defects. Patient was prepared for discharge on yesterday however he began complaining of some generalized abdominal pain and cramping and has had continued diarrhea since surgery. Patient also noted to began running fever of 100.3. He had a CT of abdomen with IV contrast on yesterday which showed some distal loops of small intestines with mild dilation and edematous wall thickening possibly related to enteritis/ileitis as well as right lower quadrant lymph nodes and small amount of free fluid in the pelvis. Patient's initial stool study showed to be negative for Clostridium difficile. He brought forth that prior to admission he has had nausea, vomiting and diarrhea that began on of last week. He also states he has had some fever and chills at home prior to admission. He denies any recent known exposure to others who have been ill. He also denies any recent antibiotic use or GI history prior to now. Denies any recent weight loss. Denies any melena or hematochezia. Denies any prior endoscopy. No leukocytosis at this time. Home Medications Medication Instructions Recorded Confirmed Type HYDROcodone/ACETAMIN 7.5-325 1 tablet PO Q4H PRN #30 tablet 09/09/16 Rx [[place] 7.5-325] Allergies Allergy/AdvReac Type Severity Reaction Status Date / Time No Known Allergies Allergy Unverified 09/07/16 06:43 Medical,Surgical,& Family Hx - Medical History Cardio: No history of: CAD, Hypertension, VT Psychological: No history of: Anxiety Disorders, ADHD, Behavior Problems, Bipolar Disorder, Depression, Previous Suicide Attempt, Psychiatric/Substance Abuse Tx, Schizophrenia, Violent Behavior, Psychiatric Problems Genitourinary: History of: Kidney Stones (had surgery for kidney stones) - Surgical History Thoracic Surgeries: Surgical HX of;: Kidney (Renal Surgery) (stone extraction) - Social History Smoking Status: Never smoker Frequency of Alcohol Use: Occasionally Type of Drug Use: None 12 point system: reviewed and no additional remarkable complaints except as stated - Constitutional Constitutional: Present: as per HPI, fever(s) - EENT Eyes: Present: as per HPI Ears: Present: as per HPI Nose, mouth and throat: Present: as per HPI - Cardiovascular Cardiovascular: Present: as per HPI - Respiratory Respiratory: Present: as per HPI - Gastrointestinal Gastrointestinal: Present: as per HPI, abdominal pain, cramping, diarrhea, nausea, vomiting - Genitourinary Genitourinary: Present: as per HPI - Musculoskeletal Musculoskeletal: Present: as per HPI - Neurological Neurological: Present: as per HPI - Psychiatric Psychiatric: Present: as per HPI - Endocrine Endocrine: Present: as per HPI - Hematologic/Lymphatic Hematologic/Lymphatic: Present: as per HPI Exam - Constitutional Vitals: Period Temp Pulse Resp BP Sys/Guardado Pulse Ox Last 24 Hr 96.9 F-103 F 73-93 16-18 102-151/60-94 90-99 General appearance: normal weight, no acute distress - Head Head exam: Present: normal inspection, normocephalic - Eye Eye exam: Present: other (Lids and conjunctive are unremarkable). Absent: scleral icterus - ENT ENT exam: Present: normal exam, normal oropharynx - Neck Neck exam: Present: normal inspection - Respiratory Respiratory exam: Present: clear to auscultation bilaterally. Absent: rales, rhonchi, wheezes - Cardiovascular Cardiovascular exam: Present: regular rate and rhythm. Absent: diastolic murmur , JVD, systolic murmur - GI/Abdominal GI/Abdominal exam: Present: normal bowel sounds, tenderness, soft. Absent: ascites, distended, mass, organomegaly - Extremities Exam Extremities exam: Present: normal inspection, full ROM - Back Exam Back exam: Present: normal inspection - Neurological Exam Neurological exam: Present: alert, oriented X3 - Psychiatric Psychiatric exam: Present: normal affect, normal mood - Skin Skin exam: Present: normal color, warm, dry Results - Labs CBC & BMP: 09/10/16 05:11 09/10/16 05:11 Lab Results: I have reviewed the past 24 hour labs Quality Measures - VTE Contraindication to Pharmacological VTE Prophylaxis: High Risk of Bleeding Specialty Discharge - Follow Up or Referrals Follow up with: Theo Loyola MD [Physician] - (Follow up with Dr. Loyola or partner in 2 wks) <Hernán Cline - Last Filed: 09/10/16 19:26> History of Present Illness History of present illness: Mr. Treadwell is a 46 year old male Exam - Constitutional Vitals: Period Temp Pulse Resp BP Sys/Guardado Pulse Ox Last 24 Hr 96.9 F-103 F 73-86 16-18 102-140/60-85 94-99 Results - Labs CBC & BMP: 09/10/16 05:11 09/10/16 05:11
[2016-09-11] MEDS: metroNIDAZOLE INJ 500 MG in PREMIX 1 EACH IV SCH ×3 (02:10→17:02)
[2016-09-11] MEDS: PIPERACILLIN/TAZOBACTAM 3,375 MG in SODIUM CHLORIDE 0.9% 100 ML IV SCH ×3 (03:11→18:06)
[2016-09-11] MEDS: DEXTROSE 5% NACL 0.45% 1,000 ML IV SCH ×4 (03:12→19:35)
[2016-09-11 06:03] LABS: Basophils % 0.8 % (0.0-0.8); Eosinophils # 0.1 10*3/uL (0.0-0.87); Eosinophils % 1.5 % (0.00-10.9); Hemoglobin 12.8 GM/DL (14.0-18.0); Immature Granulocytes % 0.8 %; Immature Granulocytes Absolute 0.04 #; Lymphocytes # 1.3 10*3/uL (1.4-4.0); Lymphocytes % 25.1 % (21.2-54.2); Mean Corpuscular HGB Conc 33.7 GM/DL (32-36); Mean Corpuscular Hemoglobin 27 PG (27-34); Mean Corpuscular Volume 80.2 FL (87-102); Mean Platelet Volume 9.4 FL (9.6-12.0); Monocytes # 0.7 10*3/uL (0.11-0.8); Neutrophils # 3.1 10*3/uL (1.4-7.4); Neutrophils % 58.8 % (38.7-73.9); Platelet Count 141 T/CUMM (130-400); Red Blood Count 4.74 MC/CUMM (3.8-5.5); Red Cell Distribution Width 13.2 % (9.3-17.3); White Blood Count 5.2 T/CUMM (4-12)
[2016-09-11 06:29] LABS: Band Neutrophils 3 % (0-10); Eosinophils 1 % (0-10); Hypochromasia 1+; Lymphocytes 23 % (20-55); Ovalocytes Slight; Platelet Estimate Normal; Segmented Neutrophils 67 % (50-85); Total Cells Counted 100
[2016-09-11 06:34] LABS: Calcium 8.2 MG/DL (8.5-10.1); Osmolality,Calculated 277.3 MOS/KG (273-304); Potassium 3.4 MMOL/L (3.5-5.1)
[2016-09-11] MEDS: PANTOPRAZOLE 40 MG TABLET PO SCH (08:32)
--- NOTE | 2016-09-11 08:47 | Gastrointestinal Progress Note ---
<HayleyCecelia Flavio - Last Filed: 09/11/16 08:44> Assessment and Plan (1) Abdominal pain Status: Acute Assessment and plan: 09/11-No changes at present. Afebrile. Stool studies all negative. Awaiting small bowel series. Plan and addendum to follow by Dr Cline. 09/10-1 week history of generalized abdominal pain, nausea, vomiting as well as associated fever and chills. Reports of varying episodes of diarrhea since onset 1 week ago. Postop laparoscopic cholecystectomy. Onset of [address] findings noted below. Currently on IV Flagyl and Zosyn. Plan an addendum to follow Dr. Son easton Current Visit: Yes Gastroenterology - PN: Subj Interval history: CC: Abdominal pain Pt is seen awake and alert, sitting up in bed. States he is feeling about the same. States he had several loose stools throughout the night. Denies any fever or chills. States he is having some lower abdominal cramping and just generally not feeling well. He has no appetite at this time. He is waiting for small bowel series today. Abdomen is soft, tender to palpation. ROS: Denies SOB or chest pain Exam (Progress Note) - Constitutional Vitals: Period Temp Pulse Resp BP Sys/[place] Pulse Ox Last 24 Hr 97.2 F-99.9 F 71-84 18-20 127-140/72-88 94-96 General appearance: normal weight, no acute distress - Head Head exam: Present: normal inspection, normocephalic - Eye Eye exam: Present: other (lids and conjunctiva unremarkable). Absent: scleral icterus - ENT ENT exam: Present: normal exam, normal oropharynx - Neck Neck exam: Present: normal inspection - Respiratory Respiratory exam: Present: clear to auscultation bilaterally. Absent: rales, rhonchi, wheezes - Cardiovascular Cardiovascular exam: Present: regular rate and rhythm. Absent: diastolic murmur , JVD, systolic murmur - GI/Abdominal GI/Abdominal exam: Present: normal bowel sounds, tenderness, soft. Absent: ascites, distended, mass, organomegaly - Extremities Exam Extremities exam: Present: normal inspection, full ROM - Back Exam Back exam: Present: normal inspection - Neurological Exam Neurological exam: Present: alert, oriented X3 - Psychiatric Psychiatric exam: Present: normal affect, normal mood - Skin Skin exam: Present: normal color, warm, dry Results - Labs CBC & BMP: 09/11/16 05:20 09/11/16 05:20 Lab Results: I have reviewed the past 24 hour labs Specialty Discharge - Follow Up or Referrals Follow up with: Theo Loyola MD [Physician] - (Follow up with Dr. Loyola or partner in 2 wks) <Hernán Cline - Last Filed: 09/11/16 15:24> Exam (Progress Note) - Constitutional Vitals: Period Temp Pulse Resp BP Sys/Guardado Pulse Ox Last 24 Hr 97.2 F-99.9 F 65-84 18-20 127-143/72-90 94-97 Results - Labs CBC & BMP: 09/11/16 05:20 09/11/16 05:20
--- NOTE | 2016-09-11 12:10 | Event Note ---
Status post laparoscopic cholecystectomy. Afebrile since yesterday morning. Vital signs stable. Labs okay. Still having some diarrhea. This does not appear to be postprandial. His previous right upper quadrant pain is resolved. His abdomen is soft appropriately tender around the incisions and nondistended. Incisions look good with no sign of infection. GI is following and he has a small bowel series scheduled for today. Continue antibiotics. A postop CT scan was suggestive of an enteritis. C. difficile has been negative.
--- NOTE | 2016-09-11 12:55 | Fluoroscopy Report ---
FL small bowel series Indication: Enteritis on CT Comparison: CT abdomen pelvis dated September 09, 2016 Technique: Small bowel series was performed under fluoroscopic guidance after oral ingestion of barium. Fluoroscopy time 13 seconds. Total image count 14. Findings: Prior cholecystectomy. Right-sided nephrolithiasis. Small bowel wall thickening demonstrated within the right lower quadrant consistent with enteritis. No evidence of gastrointestinal obstruction. IMPRESSION: As above. PROCEDURE INTERPRETED AT [facility] DEPARTMENT OF RADIOLOGY Final Report Signed by: Dr Jaime Holliday
[2016-09-11] MEDS: ONDANSETRON 4 MG/2 ML VIAL IV PRN (22:38)
[2016-09-12] MEDS: metroNIDAZOLE INJ 500 MG in PREMIX 1 EACH IV SCH ×2 (00:16→08:51)
[2016-09-12] MEDS: DEXTROSE 5% NACL 0.45% 1,000 ML IV SCH ×2 (01:17→11:14)
[2016-09-12] MEDS: PIPERACILLIN/TAZOBACTAM 3,375 MG in SODIUM CHLORIDE 0.9% 100 ML IV SCH ×2 (01:37→10:19)
[2016-09-12 05:17] LABS: Calcium 8.5 MG/DL (8.5-10.1); Potassium 3.2 MMOL/L (3.5-5.1)
[2016-09-12] MEDS: PANTOPRAZOLE 40 MG TABLET PO SCH (08:49)
[2016-09-12] MEDS ORDERED: POTASSIUM CHLORIDE 20 MEQ TABLET PO ONE (12:42)
--- NOTE | 2016-09-12 12:46 | Event Note ---
General Surgery Progress Note Chief complaint This patient is a 46-year-old man admitted with gallbladder symptoms treated with laparoscopic cholecystectomy with cholangiogram on 09/08/[address] Garvin and complicated postoperatively by fever and found to have enteritis which is being treated with antibiotic Interval history The patient is doing much better today with antibiotics. His potassium is low and this repletion has been ordered. He wants to eat regular food today. He is on IV Flagyl and Zosyn for now. Physical exam Patient is afebrile with normal vital signs Abdominal exam with expected postoperative tenderness. Normal bowel sounds. Labs Reviewed, potassium was Imaging Reviewed Assessment and plan The patient is currently being treated for some enteritis with antibiotics. Serum markers are pending for inflammatory bowel disease. We will switch him to p.o. antibiotics and advance his diet today. He will be discharged home tomorrow if his potassium normalizes and he is doing well with oral antibiotics.
[2016-09-12] MEDS: metroNIDAZOLE 500 MG TABLET PO SCH ×3 (13:52→21:06)
[2016-09-12] MEDS: CIPROFLOXACIN 500 MG TABLET PO SCH (20:43)
[2016-09-13] MEDS: metroNIDAZOLE 500 MG TABLET PO SCH (05:27)
[2016-09-13 05:42] LABS: Calcium 8.5 MG/DL (8.5-10.1)
[2016-09-13 05:43] LABS: Magnesium 2.2 MG/DL (1.8-2.4); Potassium 3.3 MMOL/L (3.5-5.1)
[2016-09-13] MEDS: CIPROFLOXACIN 500 MG TABLET PO SCH (08:39)
[2016-09-13] MEDS: PANTOPRAZOLE 40 MG TABLET PO SCH (08:39)
[2016-09-13 09:22] VITALS: BP 144/85
--- NOTE | 2016-09-13 10:56 | Discharge Summary ---
Hospital Course - Hospital Course Hospital Course: Patient is a 46-year-old male who presented with evidence of biliary dyskinesia and chronic cholecystitis who underwent laparoscopic cholecystectomy. There was also concern for possible cardiac etiology for her symptoms as patient presented with significant hypertension. Cardiology consult was obtained and input is appreciated. Ultimately, the patient tolerated the procedure as above without complication. After the surgery the patient had high fever to 103 and a workup revealed enteritis/colitis which is being followed by gastroenterology. He was placed on antibiotics and transition to p.o. which he tolerated well and he was discharged home with a 2 week course of ciprofloxacin and Flagyl and follow-up with Dr. Loyola. Specialty Discharge - Follow Up or Referrals Follow up with: Theo Loyola MD [Physician] - (Follow up with Dr. Loyola or partner in 2 wks) Discharge Plan - Discharge Data Disposition: Disch To Home/Self Care Condition at Discharge: Stable Discharge Diet: advance to your usual diet Activity: no lifting (no lifting over 20 pounds for at least 6 weeks.) Hygiene: may shower Weight Bearing at Discharge: weight bear as tolerated Driving: other (Do not drive or operate heavy machinery for at least 24 hours and after you are off of narcotic pain medications.) Contact your physician if you experience:: fever over 101, Difficulty voiding, Redness or swelling, Nausea/Vomiting, Shortness of breath, Bleeding, pain uncontrolled by pain medications Wound / Dressing Care Instructions: It is okay to shower. Do not submerge her incisions underwater - Discharge Medications New HYDROcodone/ACETAMIN 7.5-325 [[place] 7.5-325] 1 tablet PO Q4H PRN #30 tablet PRN Reason: Pain Moderate To Severe (4-10) Ciprofloxacin Tab [Cipro Tab] 500 mg PO Q12HR #28 tablet metroNIDAZOLE TAB [Flagyl Cap/Tab] 500 mg PO Q8HR #42 tablet - Follow Up or Referral Follow Up: Theo Loyola MD [Physician] - 2 Weeks (Follow up with Dr. Loyola or partner in 2 wks) - Forms/Instructions Instructions: Laparoscopic Cholecystectomy (DC) Exam - Constitutional Vitals: Period Temp Pulse Resp BP Sys/[place] Pulse Ox Last 24 Hr 97 F-98.4 F 66-76 18-20 131-151/77-96 96-98 General appearance: no acute distress, over weight - Head Head exam: Present: normal inspection, normocephalic - Eye Eye exam: Present: EOMI Pupils: Present: YOLANDE - ENT ENT exam: Present: normal exam - Neck Neck exam: Present: normal inspection - Respiratory Respiratory exam: Present: clear to auscultation bilaterally. Absent: accessory muscle use, chest wall tenderness - Cardiovascular Cardiovascular exam: Present: regular rate and rhythm. Absent: systolic murmur , tachycardia - GI/Abdominal GI/Abdominal exam: Present: soft, other (incisions are clean/dry/intact). Absent: tenderness, rebound - Extremities Exam Extremities exam: Present: normal inspection, normal capillary refill - Back Exam Back exam: Present: normal inspection - Neurological Exam Neurological exam: Present: alert, oriented X3 - Psychiatric Psychiatric exam: Present: normal affect, normal mood - Skin Skin exam: Present: normal color, warm Discharge Results Procedures and tests throughout hospitalization: Pending Orders 09/09/16 18:19 Blood Culture Stat 09/11/16 17:03 PROMETHEUS IBD sgi Diagnositic Stat Labs on day of discharge: Labs from last 24 hours 09/13/16 04:19 Sodium 143 Potassium 3.3 L Chloride 105 Carbon Dioxide 29 Anion Gap 12.3 BUN 10 Creatinine 1.00 GFR Calculation 97 BUN/Creatinine Ratio 10.00 Glucose 108 H Calculated Osmolality 284.0 Calcium 8.5 Magnesium 2.2 Preliminary micro results at discharge 09/09/16 18:19 Blood Culture - Preliminary Blood No growth at 3 days 09/09/16 17:04 Blood Culture - Preliminary Blood No growth at 3 days DS: Provider Date of admission: 09/07/16 13:12 Primary care physician: . No PCP Attending physician on admission: Theo Loyola MD Consults: 09/07/16 15:11 Consult to Physician [CONS] Routine Comment: chest pain Consulting Provider: Hector Garza Person Notified: Kaye Date Notified: 09/07/16 Time Notified: 15:13 09/10/16 06:04 Consult to Physician [CONS] Routine Comment: DIAREHEA TIMES [address] Consulting Provider: Hernán lCine Person Notified: STIVEN Hardy Date Notified: 09/10/16 Time Notified: 08:35 Discharging clinician: Kendell Green MD Expected date of discharge: 09/13/16
== END 2016-09-13 11:31 | disposition home or self-care (01) | DRG 418 ==
LOC: N.ED 06:39 → N.EDINP 13:12 → N.5E 15:08
PROVIDERS: ADMIT Surgery; ATTEND Surgery
PROC: LAPCHOL (2016-09-08 12:30)

== ENCOUNTER 2017-10-12 10:36 | Observation (INO) ==
[2017-10-13 17:03] VITALS: BP 123/68
== END 2017-10-13 16:25 | disposition home or self-care (01) ==
LOC: N.EDINP 10:36 → N.ED 10:36 → N.3E 14:20
PROVIDERS: ADMIT Surgery; ATTEND Surgery